=== PATIENT | female | born 1975 | race African-American/Black ===

== ENCOUNTER 2017-04-11 14:25 | Inpatient (IN) | payer OTHER ==
[2017-04-11 16:04] VITALS: BMI 28.7
--- NOTE | 2017-04-11 18:04 | HP ---
CIWA Score - CIWA Score Nausea/Vomitin-Mild Nausea/No Vomiting Muscle Tremors: 3 Anxiety: 3 Agitation: 4-Moderately Restless Paroxysmal Sweats: 1-Minimal Palms Moist Orientation: 1-Uncertain about Date Tacttile Disturbances: 0-None Auditory Disturbances: 0-None Visual Disturbances: 0-None Headache: 1-Very Mild CIWA-Ar Total Score: 14 Admission ROS BHS - HPI Chief Complaint: withdrawal sx Allergies/Adverse Reactions: Allergies Allergy/AdvReac Type Severity Reaction Status Date / Time fish derived Allergy Severe Hives Verified 04/11/17 18:06 Penicillins Allergy Severe Difficulty Verified 04/11/17 18:06 Breathing seafood Allergy Severe Hives Uncoded 04/11/17 18:06 History of Present Illness: 42 years old female with long history of alcohol marijuana cocaine nicotine dependence has hypertension, hiv asthma copd and schizophrenia is admitted to detox Exam Limitations: No Limitations - Ebola screening Have you traveled outside of the country in the last 21 days: No Have you had contact with anyone from an Ebola affected area: No Have you been sick,other than usual withdrawal symptoms: No Do you have a fever: No - Review of Systems Constitutional: Changes in sleep, Weight Stable EENT: reports: Dental Problems (multiple teeth missing) Respiratory: reports: SOB with Exertion Cardiac: reports: No Symptoms Reported GI: reports: Nausea, Poor Fluid Intake, Indigestion, Abdominal cramping : reports: No Symptoms Reported Musculoskeletal: reports: Back Pain Integumentary: reports: No Symptoms Reported Neuro: reports: Tremors Endocrine: reports: No Symptoms Reported Hematology: reports: No Symptoms Reported Psychiatric: reports: Judgement Intact, Depressed Other Systems: Reviewed and Negative Patient History - Patient Medical History Hx Anemia: No Hx Asthma: Yes Hx Chronic Obstructive Pulmonary Disease (COPD): Yes Hx Cancer: No Hx Cardiac Disorders: No Hx Congestive Heart Failure: No Hx Hypertension: Yes Hx Hypercholesterolemia: No Hx Pacemaker: No HX Cerebrovascular Accident: No Hx Seizures: No Hx Dementia: No Hx Diabetes: No Hx Gastrointestinal Disorders: Yes Hx Liver Disease: No Hx Genitourinary Disorders: No Hx Sexually Transmitted Disorders: Yes (HIV since 1999) Hx Renal Disease (ESRD): No Hx Thyroid Disease: No Hx Human Immunodeficiency Virus (HIV): Yes (since 1999) Hx Hepatitis C: No Hx Depression: No Hx Suicide Attempt: No Hx Bipolar Disorder: No Hx Schizophrenia: Yes - Patient Surgical History Past Surgical History: Yes Hx Neurologic Surgery: No Hx Cataract Extraction: No Hx Cardiac Surgery: No Hx Lung Surgery: No Hx Breast Surgery: No Hx Breast Biopsy: No Hx Abdominal Surgery: No Hx Appendectomy: No Hx Cholecystectomy: No Hx Genitourinary Surgery: No Hx Section: Yes (1) Hx Orthopedic Surgery: No Hx Hysterectomy: No Anesthesia Reaction: No - PPD History Previous Implant?: Yes Documented Results: Negative w/o proof Implanted On Prior [facility] Admission?: Yes Date: 03/24/15 Results: 0 mm PPD to be Administered?: Yes - Reproductive History Patient is a Female of Child Bearing Age (11 -55 yrs old): Yes Last Menstrual Period: 03/10/17 Patient : No - Smoking Cessation Smoking history: Current every day smoker Have you smoked in the past 12 months: Yes Aproximately how many cigarettes per day: 40 Cigars Per Day: 0 Hx Chewing Tobacco Use: No Initiated information on smoking cessation: Yes 'Breaking Loose' booklet given: 04/11/17 - Substance & Tx. History Hx Alcohol Use: Yes Hx Substance Use: Yes Substance Use Type: Alcohol, Cocaine, Marijuana Hx Substance Use Treatment: Yes (2014) - Substances Abused Alcohol Route: Oral Frequency: Daily Amount used: volka Litter + 24 oz x 6 pack beer Age of first use: 15 Date of Last Use: 04/11/17 Marijuana/Hashish Route: Smoking Frequency: Daily Amount used: 1/4 g Age of first use: 15 Date of Last Use: 04/11/17 Cocaine Route: Smoking Frequency: Daily Amount used: 400$ Age of first use: 18 Date of Last Use: 04/11/17 Family Disease History - Family Disease History Family History: Unremarkable Admission Physical Exam BHS - Vital Signs Vital Signs: Vital Signs - 24 hr 04/11/17 16:00 Temperature 96.4 F L Pulse Rate 88 Respiratory 20 Rate Blood Pressure 122/69 - Physical General Appearance: Yes: Nourished, Appropriately Dressed, Mild Distress, Tremorous, Irritable, Sweating, Anxious HEENTM: Yes: Hearing grossly Normal, Normal ENT Inspection, Normocephalic, Normal Voice Respiratory: Yes: Chest Non-Tender, No Respiratory Distress, No Accessory Muscle Use, Wheezing, Hyperresonant Neck: Yes: Supple, Trachea in good position Breast: Yes: Breasts Symetrical Cardiology: Yes: Regular Rhythm, Regular Rate, S1, S2 Abdominal: Yes: Non Tender, Soft Genitourinary: Yes: Within Normal Limits Back: Yes: Normal Inspection Musculoskeletal: Yes: full range of Motion, Gait Steady, Back pain, Muscle Pain Extremities: Yes: Normal Range of Motion, Non-Tender, Tremors Neurological: Yes: Alert, Motor Strength 5/5, Normal Response, Depressed Affect Integumentary: Yes: Warm Lymphatic: Yes: Within Normal Limits - Diagnostic (1) Asthma Current Visit: Yes Status: Chronic (2) COPD with asthma Current Visit: Yes Status: Chronic (3) Essential hypertension Current Visit: Yes Status: Chronic (4) HIV (human immunodeficiency virus infection) Current Visit: Yes Status: Chronic (5) Alcohol dependence with uncomplicated withdrawal Current Visit: Yes Status: Acute (6) GERD (gastroesophageal reflux disease) Current Visit: Yes Status: Chronic Qualifiers: Esophagitis presence: without esophagitis Qualified Code(s): K21.9 - Gastro-esophageal reflux disease without esophagitis (7) Schizophrenia Current Visit: Yes Status: Suspected Qualifiers: Schizophrenia type: paranoid schizophrenia Qualified Code(s): F20.0 - Paranoid schizophrenia Cleared for Admission [facility] - Detox or Rehab [facility] Level of Care: Medically Managed Detox Regimen/Protocol: Librium [facility] Breath Alcohol Content Breath Alcohol Content: 0 Urine Pregancy Test - Result Urine Test Results: Negative- NO Line Present Urine Drug Screen - Results Drug Screen Negative: No Urine Drug Screen Results: THC-Marijuana, ELSI-Cocaine
[2017-04-11] MEDS ORDERED: MAGNESIUM CITRATE 300 ML BOTTLE PO PRN (18:07)
[2017-04-11] MEDS ORDERED: chlordiazePOXIDE HCL 25 MG CAPSULE PO PRN (18:07)
[2017-04-11] MEDS ORDERED: MENTHOL/PHENOL 1 EACH UD MM PRN (18:07)
[2017-04-11] MEDS ORDERED: P-EPHED 60MG/TRIPROLIDI 2.5MG TABLET PO PRN (18:07)
[2017-04-11] MEDS ORDERED: hydrOXYzine PAMOATE 50 MG CAPSULE (FP) PO PRN (18:07)
[2017-04-11] MEDS ORDERED: LOPERAMIDE HCL 2 MG CAPSULE PO PRN (18:07)
[2017-04-11] MEDS ORDERED: NICOTINE POLACRILEX 4 MG GUM BC PRN (18:07)
[2017-04-11] MEDS ORDERED: MAGNESIUM HYDROX 2400MG/30ML ORAL SUSPENSION 30 ML CUP PO PRN (18:07)
[2017-04-11] MEDS ORDERED: MAG HYDROX/AL HYDROX/SIMETH 30 ML UNIT-DOSE CUP PO PRN (18:07)
[2017-04-11] MEDS ORDERED: guaiFENesin/D-METHORPHAN HB 10 ML UNIT-DOSE CUPS PO PRN (18:07)
[2017-04-11] MEDS ORDERED: ALBUTEROL SO4 2.5/IPRATROPIUM 0.5 INH SOL 3 ML VIAL.NEB. NEB PRN (18:10)
[2017-04-11] MEDS ORDERED: ALBUTEROL SO4 6.7 GM HFA INHALER IH PRN (18:10)
[2017-04-11] MEDS ORDERED: chlordiazePOXIDE HCL 25 MG CAPSULE PO ONE (18:45)
[2017-04-11] MEDS: BUDESONIDE/FORMETEROL FUMARATE 80/4.5 mcg INHALER IH SCH (22:28)
[2017-04-11] MEDS: THIAMINE HCL 100 MG TABLET (FP) PO SCH (22:29)
[2017-04-11] MEDS: chlordiazePOXIDE HCL 25 MG CAPSULE PO SCH (22:29)
[2017-04-11] MEDS: RANITIDINE HCL 150 MG TABLET (FP) PO SCH (22:29)
[2017-04-11] MEDS: diphenhydrAMINE HCL 50 MG CAPSULE PO PRN (22:30)
[2017-04-12 00:14] LABS: URINE APPEARANCE SLCLOUDY; URINE BILIRUBIN NEGATIVE (NEGATIVE); URINE BLOOD NEGATIVE (NEGATIVE); URINE COLOR YELLOW; URINE GLUCOSE (UA) NEGATIVE (NEGATIVE); URINE KETONE NEGATIVE (NEGATIVE); URINE LEUK ESTERASE NEGATIVE (NEGATIVE); URINE NITRITE NEGATIVE (NEGATIVE); URINE PROTEIN NEGATIVE (NEGATIVE); URINE UROBILINOGEN NEGATIVE mg/dL (0.2-1.0)
[2017-04-12] MEDS: chlordiazePOXIDE HCL 25 MG CAPSULE PO SCH ×4 (08:31→22:21)
--- NOTE | 2017-04-12 09:57 | CONSULT ---
[facility] Psychiatric Consult - Data Date of interview: 04/12/17 Admission source: [facility] Identifying data: Patient is approached for psychiatric interview.She refused.Nursing staff is made aware.
[2017-04-12] MEDS: SULFAMETHOXAZOLE/TRIMETHOPRIM 800MG/160MG D.S. TABLET PO SCH (10:25)
[2017-04-12] MEDS: BUDESONIDE/FORMETEROL FUMARATE 80/4.5 mcg INHALER IH SCH ×2 (10:25→22:21)
[2017-04-12] MEDS: amLODIPine BESYLATE 2.5 MG TABLET (FP) PO SCH (10:25)
[2017-04-12] MEDS: NICOTINE 21 MG/24 HOURS TOPICAL PATCH TD SCH (10:26)
[2017-04-12] MEDS: PRENATAL VITAMINS W/ FOLIC ACID TABLET (FP) PO SCH (10:26)
[2017-04-12] MEDS: RANITIDINE HCL 150 MG TABLET (FP) PO SCH ×2 (10:26→22:21)
--- NOTE | 2017-04-12 10:30 | EKG ---
Test Reason : Blood Pressure : / mmHG Vent. Rate : 074 BPM Atrial Rate : 074 BPM P-R Int : 168 ms QRS Dur : 092 ms QT Int : 376 ms P-R-T Axes : 068 051 036 degrees QTc Int : 417 ms NORMAL SINUS RHYTHM NORMAL ECG NO PREVIOUS ECGS AVAILABLE Confirmed by SALIMA LAM MD ([id number]) on 04/12/2017 10:30:07 AM Referred By: Jann Baker Confirmed By:SALIMA LAM MD
--- NOTE | 2017-04-12 12:01 | PN ---
S CIWA - CIWA Score Nausea/Vomitin-No Nausea/No Vomiting Muscle Tremors: 4-Moderate,w/Arms Extend Anxiety: 4-Mod. Anxious/Guarded Agitation: 4-Moderately Restless Paroxysmal Sweats: 3 Orientation: 0-Oriented Tacttile Disturbances: 0-None Auditory Disturbances: 0-None Visual Disturbances: 0-None Headache: 0-None Present CIWA-Ar Total Score: 15 BHS Progress Note (SOAP) Subjective: body aches sweats chills agitation anxiety interrupted sleep Objective: 04/12/17 12:00 Vital Signs Temperature 98.2 F 04/12/17 10:00 Pulse Rate 70 04/12/17 10:00 Respiratory Rate 18 04/12/17 10:00 Blood Pressure 136/91 04/12/17 10:00 O2 Sat by Pulse Oximetry (%) Laboratory Tests 04/11/17 23:56 Urine Color Yellow Urine Appearance Slcloudy Urine pH 6.0 Urine Protein Negative Urine Glucose (UA) Negative Urine Ketones Negative Urine Blood Negative Urine Nitrite Negative Urine Bilirubin Negative Urine Urobilinogen Negative Ur Leukocyte Esterase Negative rest of labs pending awake/alert lying in bed no acute distress Assessment: 04/12/17 12:01 withdrawal sx Plan: continue detox increase fluids labs pending
[2017-04-12] MEDS: THIAMINE HCL 100 MG TABLET (FP) PO SCH (22:21)
[2017-04-12] MEDS: diphenhydrAMINE HCL 50 MG CAPSULE PO PRN (22:21)
[2017-04-13] MEDS: chlordiazePOXIDE HCL 25 MG CAPSULE PO SCH ×3 (06:18→17:49)
[2017-04-13] MEDS: ACETAMINOPHEN 325 MG TABLET (FP) PO PRN (06:21)
[2017-04-13] MEDS: amLODIPine BESYLATE 2.5 MG TABLET (FP) PO SCH (10:46)
[2017-04-13] MEDS: BUDESONIDE/FORMETEROL FUMARATE 80/4.5 mcg INHALER IH SCH ×2 (10:46→23:24)
[2017-04-13] MEDS: NICOTINE 21 MG/24 HOURS TOPICAL PATCH TD SCH (10:46)
[2017-04-13] MEDS: SULFAMETHOXAZOLE/TRIMETHOPRIM 800MG/160MG D.S. TABLET PO SCH (10:46)
[2017-04-13] MEDS: RANITIDINE HCL 150 MG TABLET (FP) PO SCH ×2 (10:46→23:24)
[2017-04-13] MEDS: PRENATAL VITAMINS W/ FOLIC ACID TABLET (FP) PO SCH (10:46)
[2017-04-13 11:07] LABS: MCH 24.3 pg (25.7-33.7); MCHC 31.9 g/dl (32.0-36.0); MEAN CELL VOLUME 76.2 fl (80-96); MEAN PLT VOLUME 9.1 fl (7.5-11.1); PLATELET COUNT 173 K/MM3 (134-434); RDW 17.7 % (11.6-15.6); WHITE BLOOD COUNT 2.5 K/mm3 (4.0-10.0)
[2017-04-13 11:17] LABS: ALBUMIN 2.8 g/dl (3.4-5.0); ANION GAP 7 (8-16); CALCIUM 8.9 mg/dL (8.5-10.1); CO2 25 mmol/L (21-32); GLUCOSE,RANDOM 85 mg/dL (74-106)
[2017-04-13 11:21] LABS: ALK PHOS 52 U/L (45-117); BILIRUBIN,TOTAL 0.3 mg/dL (0.2-1.0); CREATININE 0.5 mg/dL (0.55-1.02); SGOT/AST 33 U/L (15-37); SGPT/ALT 34 U/L (12-78); TOT PROT 6.6 g/dl (6.4-8.2)
--- NOTE | 2017-04-13 14:48 | PN ---
[facility] CIWA - CIWA Score Nausea/Vomitin Muscle Tremors: 3 Anxiety: 3 Agitation: 2 Paroxysmal Sweats: 1-Minimal Palms Moist Orientation: 0-Oriented Tacttile Disturbances: 1-Very Mild Itch/Numbness Auditory Disturbances: 1-Very Mild Visual Disturbances: 1-Very Mild Sensitivity Headache: 2-Mild CIWA-Ar Total Score: 17 S Progress Note (SOAP) Subjective: alert,irritable,anxious,interrupted sleep,tremor Objective: 04/13/17 14:48 Vital Signs Temperature 98.1 F 04/13/17 10:02 Pulse Rate 70 04/13/17 10:02 Respiratory Rate 18 04/13/17 10:02 Blood Pressure 140/89 04/13/17 10:02 O2 Sat by Pulse Oximetry (%) ekg nsr,normal ecg 04/13/17 14:50 Laboratory Last Values WBC 2.5 K/mm3 (4.0-10.0) L D 04/13/17 08:33 RBC 4.69 M/mm3 (3.60-5.2) 04/13/17 08:33 Hgb 11.4 GM/dL (10.7-15.3) 04/13/17 08:33 Hct 35.8 % (32.4-45.2) 04/13/17 08:33 MCV 76.2 fl (80-96) L 04/13/17 08:33 MCH 24.3 pg (25.7-33.7) L 04/13/17 08:33 MCHC 31.9 g/dl (32.0-36.0) L 04/13/17 08:33 RDW 17.7 % (11.6-15.6) H 04/13/17 08:33 Plt Count 173 K/MM3 (134-434) 04/13/17 08:33 MPV 9.1 fl (7.5-11.1) 04/13/17 08:33 Sodium 130 mmol/L (136-145) L 04/13/17 08:33 Potassium 4.1 mmol/L (3.5-5.1) 04/13/17 08:33 Chloride 98 mmol/L (98-107) 04/13/17 08:33 Carbon Dioxide 25 mmol/L (21-32) 04/13/17 08:33 Anion Gap 7 (8-16) L 04/13/17 08:33 BUN 7 mg/dL (7-18) D 04/13/17 08:33 Creatinine 0.5 mg/dL (0.55-1.02) L D 04/13/17 08:33 Creat Clearance w eGFR > 60 (>60) 04/13/17 08:33 Random Glucose 85 mg/dL (74-106) D 04/13/17 08:33 Calcium 8.9 mg/dL (8.5-10.1) 04/13/17 08:33 Total Bilirubin 0.3 mg/dL (0.2-1.0) D 04/13/17 08:33 AST 33 U/L (15-37) D 04/13/17 08:33 ALT 34 U/L (12-78) 04/13/17 08:33 Alkaline Phosphatase 52 U/L (45-117) D 04/13/17 08:33 Total Protein 6.6 g/dl (6.4-8.2) 04/13/17 08:33 Albumin 2.8 g/dl (3.4-5.0) L D 04/13/17 08:33 Urine Color Yellow 04/11/17 23:56 Urine Appearance Slcloudy 04/11/17 23:56 Urine pH 6.0 (5.0-8.0) 04/11/17 23:56 Ur Specific [place] 1.020 (1.005-1.025) 04/11/17 23:56 Urine Protein Negative (NEGATIVE) 04/11/17 23:56 Urine Glucose (UA) Negative (NEGATIVE) 04/11/17 23:56 Urine Ketones Negative (NEGATIVE) 04/11/17 23:56 Urine Blood Negative (NEGATIVE) 04/11/17 23:56 Urine Nitrite Negative (NEGATIVE) 04/11/17 23:56 Urine Bilirubin Negative (NEGATIVE) 04/11/17 23:56 Urine Urobilinogen Negative mg/dL (0.2-1.0) 04/11/17 23:56 Ur Leukocyte Esterase Negative (NEGATIVE) 04/11/17 23:56 Valproic Acid < 3.000 ug/ml (50-100) L 04/13/17 08:33 RPR Titer Nonreactive (NONREACTIVE) 04/13/17 08:33 Assessment: 04/13/17 14:50 withdrawal symptom Plan: continue detox,repeat cbc,cmp in am
[2017-04-13] MEDS: chlordiazePOXIDE 5 MG CAPSULE PO SCH (23:23)
[2017-04-13] MEDS: THIAMINE HCL 100 MG TABLET (FP) PO SCH (23:24)
[2017-04-14] MEDS: chlordiazePOXIDE 5 MG CAPSULE PO SCH ×3 (06:46→17:01)
[2017-04-14 10:29] LABS: MCH 24.3 pg (25.7-33.7); MCHC 32.2 g/dl (32.0-36.0); MEAN CELL VOLUME 75.5 fl (80-96); MEAN PLT VOLUME 8.9 fl (7.5-11.1); PLATELET COUNT 184 K/MM3 (134-434); RDW 17.8 % (11.6-15.6); WHITE BLOOD COUNT 2.3 K/mm3 (4.0-10.0)
[2017-04-14] MEDS: RANITIDINE HCL 150 MG TABLET (FP) PO SCH ×2 (10:30→22:59)
[2017-04-14] MEDS: amLODIPine BESYLATE 2.5 MG TABLET (FP) PO SCH (10:30)
[2017-04-14] MEDS: NICOTINE 21 MG/24 HOURS TOPICAL PATCH TD SCH (10:30)
[2017-04-14] MEDS: SULFAMETHOXAZOLE/TRIMETHOPRIM 800MG/160MG D.S. TABLET PO SCH (10:30)
[2017-04-14] MEDS: PRENATAL VITAMINS W/ FOLIC ACID TABLET (FP) PO SCH (10:30)
[2017-04-14] MEDS: BUDESONIDE/FORMETEROL FUMARATE 80/4.5 mcg INHALER IH SCH ×2 (10:31→22:58)
[2017-04-14 11:08] LABS: ALBUMIN 2.9 g/dl (3.4-5.0); ALK PHOS 58 U/L (45-117); ANION GAP 6 (8-16); BILIRUBIN,TOTAL 0.3 mg/dL (0.2-1.0); CALCIUM 9.2 mg/dL (8.5-10.1); CO2 25 mmol/L (21-32); CREATININE 0.5 mg/dL (0.55-1.02); GLUCOSE,RANDOM 87 mg/dL (74-106); SGOT/AST 32 U/L (15-37); SGPT/ALT 40 U/L (12-78); TOT PROT 6.6 g/dl (6.4-8.2)
--- NOTE | 2017-04-14 15:19 | PN ---
S Progress Note (SOAP) Subjective: ALERT,IRRITABLE,INTERRUPTED SLEEP Objective: 04/14/17 15:17 Vital Signs Temperature 97.7 F 04/14/17 14:12 Pulse Rate 80 04/14/17 14:12 Respiratory Rate 18 04/14/17 14:12 Blood Pressure 113/68 04/14/17 14:12 O2 Sat by Pulse Oximetry (%) Laboratory Last Values WBC 2.3 K/mm3 (4.0-10.0) L 04/14/17 07:45 RBC 4.64 M/mm3 (3.60-5.2) 04/14/17 07:45 Hgb 11.3 GM/dL (10.7-15.3) 04/14/17 07:45 Hct 35.0 % (32.4-45.2) 04/14/17 07:45 MCV 75.5 fl (80-96) L 04/14/17 07:45 MCH 24.3 pg (25.7-33.7) L 04/14/17 07:45 MCHC 32.2 g/dl (32.0-36.0) 04/14/17 07:45 RDW 17.8 % (11.6-15.6) H 04/14/17 07:45 Plt Count 184 K/MM3 (134-434) 04/14/17 07:45 MPV 8.9 fl (7.5-11.1) 04/14/17 07:45 Sodium 131 mmol/L (136-145) L 04/14/17 07:45 Potassium 4.2 mmol/L (3.5-5.1) 04/14/17 07:45 Chloride 100 mmol/L (98-107) 04/14/17 07:45 Carbon Dioxide 25 mmol/L (21-32) 04/14/17 07:45 Anion Gap 6 (8-16) L 04/14/17 07:45 BUN 8 mg/dL (7-18) 04/14/17 07:45 Creatinine 0.5 mg/dL (0.55-1.02) L 04/14/17 07:45 Creat Clearance w eGFR > 60 (>60) 04/14/17 07:45 Random Glucose 87 mg/dL (74-106) 04/14/17 07:45 Calcium 9.2 mg/dL (8.5-10.1) 04/14/17 07:45 Total Bilirubin 0.3 mg/dL (0.2-1.0) 04/14/17 07:45 AST 32 U/L (15-37) 04/14/17 07:45 ALT 40 U/L (12-78) 04/14/17 07:45 Alkaline Phosphatase 58 U/L (45-117) 04/14/17 07:45 Total Protein 6.6 g/dl (6.4-8.2) 04/14/17 07:45 Albumin 2.9 g/dl (3.4-5.0) L 04/14/17 07:45 Urine Color Yellow 04/11/17 23:56 Urine Appearance Slcloudy 04/11/17 23:56 Urine pH 6.0 (5.0-8.0) 04/11/17 23:56 Ur Specific [place] 1.020 (1.005-1.025) 04/11/17 23:56 Urine Protein Negative (NEGATIVE) 04/11/17 23:56 Urine Glucose (UA) Negative (NEGATIVE) 04/11/17 23:56 Urine Ketones Negative (NEGATIVE) 04/11/17 23:56 Urine Blood Negative (NEGATIVE) 04/11/17 23:56 Urine Nitrite Negative (NEGATIVE) 04/11/17 23:56 Urine Bilirubin Negative (NEGATIVE) 04/11/17 23:56 Urine Urobilinogen Negative mg/dL (0.2-1.0) 04/11/17 23:56 Ur Leukocyte Esterase Negative (NEGATIVE) 04/11/17 23:56 Valproic Acid < 3.000 ug/ml (50-100) L 04/13/17 08:33 RPR Titer Nonreactive (NONREACTIVE) 04/13/17 08:33 Assessment: 04/14/17 15:18 WITHDRAWAL SYMPTOM Plan: CONTINUE DETOX,DISCHARGE IN AM
[2017-04-14] MEDS: ACETAMINOPHEN 325 MG TABLET (FP) PO PRN (15:28)
[2017-04-14] MEDS: chlordiazePOXIDE HCL 10 MG CAPSULE PO SCH (22:58)
[2017-04-14] MEDS: THIAMINE HCL 100 MG TABLET (FP) PO SCH (22:59)
[2017-04-15] MEDS: chlordiazePOXIDE HCL 10 MG CAPSULE PO SCH ×2 (07:53→10:01)
[2017-04-15] MEDS: BUDESONIDE/FORMETEROL FUMARATE 80/4.5 mcg INHALER IH SCH (09:48)
[2017-04-15] MEDS: RANITIDINE HCL 150 MG TABLET (FP) PO SCH (09:48)
[2017-04-15] MEDS: PRENATAL VITAMINS W/ FOLIC ACID TABLET (FP) PO SCH (09:48)
[2017-04-15] MEDS: SULFAMETHOXAZOLE/TRIMETHOPRIM 800MG/160MG D.S. TABLET PO SCH (09:48)
[2017-04-15] MEDS: amLODIPine BESYLATE 2.5 MG TABLET (FP) PO SCH (09:48)
--- NOTE | 2017-04-15 09:49 | DS ---
[facility] Detox Discharge Summary Admission Date: 04/11/17 Discharge Date: 04/15/17 - History Present History: Alcohol Dependence, Cannabis Dependence, Cocaine Dependence, Opioid Dependence - Physical Exam Results Vital Signs: Vital Signs Temperature 96.3 F L 04/15/17 06:57 Pulse Rate 74 04/15/17 06:57 Respiratory Rate 18 04/15/17 06:57 Blood Pressure 101/51 04/15/17 06:57 O2 Sat by Pulse Oximetry (%) - Treatment Hospital Course: Detox Protocol Followed, Detoxed Safely, Responded well, Discharged Condition Good, Rehab Referral Accepted - Medication Discharge Medications: Ambulatory Orders Abacavir Sulfate/Lamivudine [Epzicom -] 1 tab PO DAILY 10/28/13 Albuterol Sulfate Inhaler - [Ventolin HFA Inhaler -] 2 inh PO Q4H PRN 10/28/13 Atazanavir [Reyataz -] 300 mg PO DAILY 10/28/13 Ritonavir [Norvir] 100 mg PO DAILY 10/28/13 Tenofovir Disoproxil Fumarate [Viread] 300 mg PO DAILY 10/28/13 Amlodipine Besylate [Norvasc -] 2.5 mg PO DAILY #0 tablet 11/10/13 Quetiapine Fumarate [Seroquel -] 100 mg PO BID #60 tablet 11/10/13 Prednisone [Deltasone -] 40 mg PO DAILY 03/22/15 Quetiapine Fumarate [Seroquel] 100 mg PO BID #60 tablet 03/25/15 - Diagnosis (1) Alcohol dependence with uncomplicated withdrawal Current Visit: Yes Status: Chronic (2) Asthma Current Visit: Yes Status: Chronic (3) COPD with asthma Current Visit: Yes Status: Chronic (4) Essential hypertension Current Visit: Yes Status: Chronic (5) GERD (gastroesophageal reflux disease) Current Visit: Yes Status: Chronic Qualifiers: Esophagitis presence: without esophagitis Qualified Code(s): K21.9 - Gastro-esophageal reflux disease without esophagitis (6) HIV (human immunodeficiency virus infection) Current Visit: Yes Status: Chronic (7) Schizophrenia Current Visit: Yes Status: Suspected Qualifiers: Schizophrenia type: paranoid schizophrenia Qualified Code(s): F20.0 - Paranoid schizophrenia (8) Bipolar disorder Current Visit: No Status: Active (9) depression Current Visit: No Status: Active (10) Difficulty swallowing Current Visit: No Status: Acute (11) Throat discomfort Current Visit: No Status: Acute (12) Alcohol dependence Current Visit: Yes Status: Chronic (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
[2017-04-15 10:49] VITALS: BP 122/71; PULSE 89; TEMP 98.8
== END 2017-04-15 11:55 | disposition other institution (70) | DRG 774 ==
LOC: YASAS 14:25 → Y6N 18:11
PROVIDERS: ADMIT Internal Medicine; ATTEND Internal Medicine Addiction Medicine
PROC: HZ2ZZZZ Detoxification Services for Substance Abuse Treatment (ICD-10-PCS; principal; 2017-04-11)
DX: F10.230 Alcohol dependence with withdrawal, uncomplicated (principal); F14.20 Cocaine dependence, uncomplicated; F12.20 Cannabis dependence, uncomplicated; F17.210 Nicotine dependence, cigarettes, uncomplicated; F20.0 Paranoid schizophrenia; F31.9 Bipolar disorder, unspecified; J44.9 Chronic obstructive pulmonary disease, unspecified; I10 Essential (primary) hypertension; K21.9 Gastro-esophageal reflux disease without esophagitis; R13.10 Dysphagia, unspecified; R07.0 Pain in throat; R41.83 Borderline intellectual functioning; Z88.0 Allergy status to penicillin; Z91.013 Allergy to seafood
CPT/HCPCS: 36415; 80053; 80164; 81003; 85027; 86593; 93005; 93010

== ENCOUNTER 2017-04-15 12:01 | Inpatient (IN) | payer OTHER ==
[2017-04-15] MEDS ORDERED: guaiFENesin/D-METHORPHAN HB 10 ML UNIT-DOSE CUPS PO PRN (13:59)
[2017-04-15] MEDS ORDERED: P-EPHED 60MG/TRIPROLIDI 2.5MG TABLET PO PRN (13:59)
[2017-04-15] MEDS ORDERED: IBUPROFEN 400 MG TABLET (FP) PO PRN (13:59)
[2017-04-15] MEDS ORDERED: MAGNESIUM CITRATE 300 ML BOTTLE PO PRN (13:59)
[2017-04-15] MEDS ORDERED: diphenhydrAMINE HCL 50 MG CAPSULE PO PRN (13:59)
[2017-04-15] MEDS ORDERED: ACETAMINOPHEN 325 MG TABLET (FP) PO PRN (13:59)
[2017-04-15] MEDS ORDERED: MAGNESIUM HYDROX 2400MG/30ML ORAL SUSPENSION 30 ML CUP PO PRN (13:59)
[2017-04-15] MEDS ORDERED: MENTHOL/PHENOL 1 EACH UD MM PRN (13:59)
[2017-04-15] MEDS ORDERED: LOPERAMIDE HCL 2 MG CAPSULE PO PRN (13:59)
[2017-04-15] MEDS ORDERED: MAG HYDROX/AL HYDROX/SIMETH 30 ML UNIT-DOSE CUP PO PRN (13:59)
[2017-04-15] MEDS ORDERED: ALBUTEROL SO4 6.7 GM HFA INHALER IH PRN (14:00)
--- NOTE | 2017-04-15 14:54 | HP ---
[facility] Rehab Assess/Revision - Admission History Admitted to Rehab from: [facility] Date of Admission to Rehab: 04/15/17 - Vital signs Vital Signs: Vital Signs Period Temp Pulse Resp BP Sys/Chew Pulse Ox Last 24 Hr 80 18 106/70 - Findings Detox History & Physical reviewed: Yes Concur with findings: Yes Comments/Additional Findings: ADMITTED TO [facility] TO CONTINUE TX.
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
[2017-04-15] MEDS: THIAMINE HCL 100 MG TABLET (FP) PO SCH (21:15)
[2017-04-15] MEDS: BUDESONIDE/FORMETEROL FUMARATE 80/4.5 mcg INHALER IH SCH (21:15)
[2017-04-16] MEDS ORDERED: PT OWN MED DRAWER 7, Y5N ONE (08:33)
[2017-04-16] MEDS: PRENATAL VITAMINS W/ FOLIC ACID TABLET (FP) PO SCH (09:53)
[2017-04-16] MEDS: SULFAMETHOXAZOLE/TRIMETHOPRIM 800MG/160MG D.S. TABLET PO SCH (09:54)
[2017-04-16] MEDS: amLODIPine BESYLATE 2.5 MG TABLET (FP) PO SCH (09:54)
[2017-04-16] MEDS: RANITIDINE HCL 150 MG TABLET (FP) PO SCH (09:54)
[2017-04-16] MEDS: BUDESONIDE/FORMETEROL FUMARATE 80/4.5 mcg INHALER IH SCH ×2 (09:54→21:44)
[2017-04-16] MEDS: THIAMINE HCL 100 MG TABLET (FP) PO SCH (21:44)
[2017-04-17] MEDS ORDERED: PT OWN MED DRAWER 7, Y5N ONE ×2 (08:32→20:12)
[2017-04-17] MEDS: PRENATAL VITAMINS W/ FOLIC ACID TABLET (FP) PO SCH (10:07)
[2017-04-17] MEDS: RANITIDINE HCL 150 MG TABLET (FP) PO SCH (10:07)
[2017-04-17] MEDS: amLODIPine BESYLATE 2.5 MG TABLET (FP) PO SCH (10:07)
[2017-04-17] MEDS: BUDESONIDE/FORMETEROL FUMARATE 80/4.5 mcg INHALER IH SCH ×2 (10:07→21:14)
[2017-04-17] MEDS: SULFAMETHOXAZOLE/TRIMETHOPRIM 800MG/160MG D.S. TABLET PO SCH (10:07)
[2017-04-17] MEDS: THIAMINE HCL 100 MG TABLET (FP) PO SCH (21:14)
[2017-04-18] MEDS ORDERED: PT OWN MED DRAWER 7, Y5N ONE (08:21)
[2017-04-18] MEDS: amLODIPine BESYLATE 2.5 MG TABLET (FP) PO SCH (10:23)
[2017-04-18] MEDS: BUDESONIDE/FORMETEROL FUMARATE 80/4.5 mcg INHALER IH SCH ×2 (10:23→21:13)
[2017-04-18] MEDS: SULFAMETHOXAZOLE/TRIMETHOPRIM 800MG/160MG D.S. TABLET PO SCH (10:23)
[2017-04-18] MEDS: PRENATAL VITAMINS W/ FOLIC ACID TABLET (FP) PO SCH (10:24)
[2017-04-18] MEDS: RANITIDINE HCL 150 MG TABLET (FP) PO SCH (10:24)
[2017-04-18] MEDS: DIVALPROEX SODIUM 500 MG TABLET E.C. PO SCH ×2 (11:23→21:13)
[2017-04-18] MEDS: THIAMINE HCL 100 MG TABLET (FP) PO SCH (21:13)
[2017-04-18] MEDS: QUEtiapine FUMARATE 100 MG TABLET (FP) PO SCH (21:13)
[2017-04-19] MEDS ORDERED: PT OWN MED DRAWER 7, Y5N ONE (08:27)
[2017-04-19] MEDS: amLODIPine BESYLATE 2.5 MG TABLET (FP) PO SCH (09:58)
[2017-04-19] MEDS: SULFAMETHOXAZOLE/TRIMETHOPRIM 800MG/160MG D.S. TABLET PO SCH (09:58)
[2017-04-19] MEDS: RANITIDINE HCL 150 MG TABLET (FP) PO SCH (09:58)
[2017-04-19] MEDS: DIVALPROEX SODIUM 500 MG TABLET E.C. PO SCH ×2 (09:58→21:21)
[2017-04-19] MEDS: BUDESONIDE/FORMETEROL FUMARATE 80/4.5 mcg INHALER IH SCH ×2 (09:59→21:22)
[2017-04-19] MEDS: PRENATAL VITAMINS W/ FOLIC ACID TABLET (FP) PO SCH (09:59)
[2017-04-19] MEDS: QUEtiapine FUMARATE 100 MG TABLET (FP) PO SCH (21:21)
[2017-04-19] MEDS: THIAMINE HCL 100 MG TABLET (FP) PO SCH (21:21)
[2017-04-20] MEDS: SULFAMETHOXAZOLE/TRIMETHOPRIM 800MG/160MG D.S. TABLET PO SCH (09:37)
[2017-04-20] MEDS: RANITIDINE HCL 150 MG TABLET (FP) PO SCH (09:37)
[2017-04-20] MEDS: PRENATAL VITAMINS W/ FOLIC ACID TABLET (FP) PO SCH (09:37)
[2017-04-20] MEDS: DIVALPROEX SODIUM 500 MG TABLET E.C. PO SCH ×2 (09:37→21:14)
[2017-04-20] MEDS: amLODIPine BESYLATE 2.5 MG TABLET (FP) PO SCH (09:38)
[2017-04-20] MEDS: BUDESONIDE/FORMETEROL FUMARATE 80/4.5 mcg INHALER IH SCH ×2 (09:38→21:14)
[2017-04-20] MEDS: QUEtiapine FUMARATE 100 MG TABLET (FP) PO SCH (21:14)
[2017-04-20] MEDS: THIAMINE HCL 100 MG TABLET (FP) PO SCH (21:14)
[2017-04-21] MEDS: SULFAMETHOXAZOLE/TRIMETHOPRIM 800MG/160MG D.S. TABLET PO SCH (10:01)
[2017-04-21] MEDS: RANITIDINE HCL 150 MG TABLET (FP) PO SCH (10:01)
[2017-04-21] MEDS: amLODIPine BESYLATE 2.5 MG TABLET (FP) PO SCH (10:01)
[2017-04-21] MEDS: DIVALPROEX SODIUM 500 MG TABLET E.C. PO SCH ×2 (10:01→21:08)
[2017-04-21] MEDS: PRENATAL VITAMINS W/ FOLIC ACID TABLET (FP) PO SCH (10:01)
[2017-04-21] MEDS: BUDESONIDE/FORMETEROL FUMARATE 80/4.5 mcg INHALER IH SCH ×2 (10:01→21:08)
[2017-04-21] MEDS: THIAMINE HCL 100 MG TABLET (FP) PO SCH (21:08)
[2017-04-21] MEDS: QUEtiapine FUMARATE 100 MG TABLET (FP) PO SCH (21:09)
[2017-04-22] MEDS: PRENATAL VITAMINS W/ FOLIC ACID TABLET (FP) PO SCH (09:32)
[2017-04-22] MEDS: amLODIPine BESYLATE 2.5 MG TABLET (FP) PO SCH (09:33)
[2017-04-22] MEDS: BUDESONIDE/FORMETEROL FUMARATE 80/4.5 mcg INHALER IH SCH ×2 (09:33→21:06)
[2017-04-22] MEDS: RANITIDINE HCL 150 MG TABLET (FP) PO SCH (09:33)
[2017-04-22] MEDS: DIVALPROEX SODIUM 500 MG TABLET E.C. PO SCH ×2 (09:33→21:05)
[2017-04-22] MEDS: SULFAMETHOXAZOLE/TRIMETHOPRIM 800MG/160MG D.S. TABLET PO SCH (09:38)
[2017-04-22] MEDS: THIAMINE HCL 100 MG TABLET (FP) PO SCH (21:05)
[2017-04-22] MEDS: QUEtiapine FUMARATE 100 MG TABLET (FP) PO SCH (21:05)
[2017-04-23] MEDS: amLODIPine BESYLATE 2.5 MG TABLET (FP) PO SCH (10:00)
[2017-04-23] MEDS: BUDESONIDE/FORMETEROL FUMARATE 80/4.5 mcg INHALER IH SCH ×2 (10:00→21:25)
[2017-04-23] MEDS: PRENATAL VITAMINS W/ FOLIC ACID TABLET (FP) PO SCH (10:00)
[2017-04-23] MEDS: SULFAMETHOXAZOLE/TRIMETHOPRIM 800MG/160MG D.S. TABLET PO SCH (10:00)
[2017-04-23] MEDS: DIVALPROEX SODIUM 500 MG TABLET E.C. PO SCH ×2 (10:00→21:25)
[2017-04-23] MEDS: RANITIDINE HCL 150 MG TABLET (FP) PO SCH (10:00)
[2017-04-23] MEDS: QUEtiapine FUMARATE 100 MG TABLET (FP) PO SCH (21:25)
[2017-04-23] MEDS: THIAMINE HCL 100 MG TABLET (FP) PO SCH (21:25)
[2017-04-23] MEDS ORDERED: PT OWN MED DRAWER 7, Y5N ONE (22:33)
[2017-04-24] MEDS ORDERED: PT OWN MED DRAWER 7, Y5N ONE (08:08)
[2017-04-24] MEDS: BUDESONIDE/FORMETEROL FUMARATE 80/4.5 mcg INHALER IH SCH ×2 (09:53→21:12)
[2017-04-24] MEDS: RANITIDINE HCL 150 MG TABLET (FP) PO SCH (09:54)
[2017-04-24] MEDS: DIVALPROEX SODIUM 500 MG TABLET E.C. PO SCH ×2 (09:55→21:12)
[2017-04-24] MEDS: amLODIPine BESYLATE 2.5 MG TABLET (FP) PO SCH (09:55)
[2017-04-24] MEDS: PRENATAL VITAMINS W/ FOLIC ACID TABLET (FP) PO SCH (09:55)
[2017-04-24] MEDS: SULFAMETHOXAZOLE/TRIMETHOPRIM 800MG/160MG D.S. TABLET PO SCH (09:55)
[2017-04-24] MEDS ORDERED: DICLOFENAC SODIUM 75 MG TABLET.DR PO SCH (10:00)
[2017-04-24] MEDS ORDERED: FLUCONAZOLE 150 MG PO ONE (11:00)
[2017-04-24] MEDS: QUEtiapine FUMARATE 100 MG TABLET (FP) PO SCH (21:12)
[2017-04-24] MEDS: THIAMINE HCL 100 MG TABLET (FP) PO SCH (21:12)
[2017-04-25] MEDS ORDERED: PT OWN MED DRAWER 7, Y5N ONE (08:11)
[2017-04-25] MEDS: BUDESONIDE/FORMETEROL FUMARATE 80/4.5 mcg INHALER IH SCH ×2 (09:37→21:14)
[2017-04-25] MEDS: DIVALPROEX SODIUM 500 MG TABLET E.C. PO SCH ×2 (09:37→21:13)
[2017-04-25] MEDS: SULFAMETHOXAZOLE/TRIMETHOPRIM 800MG/160MG D.S. TABLET PO SCH (09:37)
[2017-04-25] MEDS: RANITIDINE HCL 150 MG TABLET (FP) PO SCH (09:37)
[2017-04-25] MEDS: amLODIPine BESYLATE 2.5 MG TABLET (FP) PO SCH (09:40)
[2017-04-25] MEDS: PRENATAL VITAMINS W/ FOLIC ACID TABLET (FP) PO SCH (09:40)
[2017-04-25] MEDS: QUEtiapine FUMARATE 100 MG TABLET (FP) PO SCH (21:13)
[2017-04-25] MEDS: THIAMINE HCL 100 MG TABLET (FP) PO SCH (21:13)
[2017-04-26] MEDS ORDERED: PT OWN MED DRAWER 7, Y5N ONE ×2 (08:19→19:27)
[2017-04-26] MEDS: DIVALPROEX SODIUM 500 MG TABLET E.C. PO SCH ×2 (10:03→21:17)
[2017-04-26] MEDS: BUDESONIDE/FORMETEROL FUMARATE 80/4.5 mcg INHALER IH SCH ×2 (10:03→21:18)
[2017-04-26] MEDS: PRENATAL VITAMINS W/ FOLIC ACID TABLET (FP) PO SCH (10:03)
[2017-04-26] MEDS: RANITIDINE HCL 150 MG TABLET (FP) PO SCH (10:03)
[2017-04-26] MEDS: amLODIPine BESYLATE 2.5 MG TABLET (FP) PO SCH (10:03)
[2017-04-26] MEDS: SULFAMETHOXAZOLE/TRIMETHOPRIM 800MG/160MG D.S. TABLET PO SCH (10:03)
[2017-04-26] MEDS: THIAMINE HCL 100 MG TABLET (FP) PO SCH (21:17)
[2017-04-26] MEDS: QUEtiapine FUMARATE 100 MG TABLET (FP) PO SCH (21:17)
[2017-04-27] MEDS ORDERED: PT OWN MED DRAWER 7, Y5N ONE (08:45)
[2017-04-27] MEDS: RANITIDINE HCL 150 MG TABLET (FP) PO SCH (09:38)
[2017-04-27] MEDS: SULFAMETHOXAZOLE/TRIMETHOPRIM 800MG/160MG D.S. TABLET PO SCH (09:38)
[2017-04-27] MEDS: PRENATAL VITAMINS W/ FOLIC ACID TABLET (FP) PO SCH (09:38)
[2017-04-27] MEDS: DIVALPROEX SODIUM 500 MG TABLET E.C. PO SCH ×2 (09:38→21:12)
[2017-04-27] MEDS: BUDESONIDE/FORMETEROL FUMARATE 80/4.5 mcg INHALER IH SCH ×2 (09:39→21:13)
[2017-04-27] MEDS: amLODIPine BESYLATE 2.5 MG TABLET (FP) PO SCH (09:39)
[2017-04-27] MEDS: QUEtiapine FUMARATE 100 MG TABLET (FP) PO SCH (21:12)
[2017-04-27] MEDS: THIAMINE HCL 100 MG TABLET (FP) PO SCH (21:12)
[2017-04-28] MEDS: SULFAMETHOXAZOLE/TRIMETHOPRIM 800MG/160MG D.S. TABLET PO SCH (09:42)
[2017-04-28] MEDS: PRENATAL VITAMINS W/ FOLIC ACID TABLET (FP) PO SCH (09:42)
[2017-04-28] MEDS: RANITIDINE HCL 150 MG TABLET (FP) PO SCH (09:42)
[2017-04-28] MEDS: DIVALPROEX SODIUM 500 MG TABLET E.C. PO SCH ×2 (09:42→21:11)
[2017-04-28] MEDS: BUDESONIDE/FORMETEROL FUMARATE 80/4.5 mcg INHALER IH SCH ×2 (09:43→21:12)
[2017-04-28] MEDS: amLODIPine BESYLATE 2.5 MG TABLET (FP) PO SCH (09:43)
[2017-04-28] MEDS: THIAMINE HCL 100 MG TABLET (FP) PO SCH (21:11)
[2017-04-28] MEDS: QUEtiapine FUMARATE 100 MG TABLET (FP) PO SCH (21:11)
[2017-04-29] MEDS: DIVALPROEX SODIUM 500 MG TABLET E.C. PO SCH ×2 (09:43→21:07)
[2017-04-29] MEDS: SULFAMETHOXAZOLE/TRIMETHOPRIM 800MG/160MG D.S. TABLET PO SCH (09:43)
[2017-04-29] MEDS: RANITIDINE HCL 150 MG TABLET (FP) PO SCH (09:43)
[2017-04-29] MEDS: PRENATAL VITAMINS W/ FOLIC ACID TABLET (FP) PO SCH (09:43)
[2017-04-29] MEDS: BUDESONIDE/FORMETEROL FUMARATE 80/4.5 mcg INHALER IH SCH ×2 (09:44→21:07)
[2017-04-29] MEDS: amLODIPine BESYLATE 2.5 MG TABLET (FP) PO SCH (09:44)
[2017-04-29] MEDS ORDERED: PT OWN MED DRAWER 7, Y5N ONE (20:06)
[2017-04-29] MEDS: THIAMINE HCL 100 MG TABLET (FP) PO SCH (21:07)
[2017-04-29] MEDS: QUEtiapine FUMARATE 100 MG TABLET (FP) PO SCH (21:07)
[2017-04-30] MEDS: RANITIDINE HCL 150 MG TABLET (FP) PO SCH (10:43)
[2017-04-30] MEDS: SULFAMETHOXAZOLE/TRIMETHOPRIM 800MG/160MG D.S. TABLET PO SCH (10:43)
[2017-04-30] MEDS: PRENATAL VITAMINS W/ FOLIC ACID TABLET (FP) PO SCH (10:43)
[2017-04-30] MEDS: DIVALPROEX SODIUM 500 MG TABLET E.C. PO SCH ×2 (10:43→21:20)
[2017-04-30] MEDS: BUDESONIDE/FORMETEROL FUMARATE 80/4.5 mcg INHALER IH SCH ×2 (10:45→21:20)
[2017-04-30] MEDS: amLODIPine BESYLATE 2.5 MG TABLET (FP) PO SCH (10:45)
[2017-04-30] MEDS: QUEtiapine FUMARATE 100 MG TABLET (FP) PO SCH (21:20)
[2017-04-30] MEDS: THIAMINE HCL 100 MG TABLET (FP) PO SCH (21:20)
[2017-05-01] MEDS ORDERED: PT OWN MED DRAWER 7, Y5N ONE (08:19)
[2017-05-01] MEDS: DIVALPROEX SODIUM 500 MG TABLET E.C. PO SCH ×2 (09:58→21:12)
[2017-05-01] MEDS: PRENATAL VITAMINS W/ FOLIC ACID TABLET (FP) PO SCH (09:58)
[2017-05-01] MEDS: BUDESONIDE/FORMETEROL FUMARATE 80/4.5 mcg INHALER IH SCH ×2 (09:59→21:12)
[2017-05-01] MEDS: RANITIDINE HCL 150 MG TABLET (FP) PO SCH (09:59)
[2017-05-01] MEDS: SULFAMETHOXAZOLE/TRIMETHOPRIM 800MG/160MG D.S. TABLET PO SCH (09:59)
[2017-05-01] MEDS: QUEtiapine FUMARATE 100 MG TABLET (FP) PO SCH (21:12)
[2017-05-01] MEDS: THIAMINE HCL 100 MG TABLET (FP) PO SCH (21:12)
[2017-05-02] MEDS ORDERED: PT OWN MED DRAWER 7, Y5N ONE (08:28)
[2017-05-02] MEDS: SULFAMETHOXAZOLE/TRIMETHOPRIM 800MG/160MG D.S. TABLET PO SCH (09:40)
[2017-05-02] MEDS: DIVALPROEX SODIUM 500 MG TABLET E.C. PO SCH ×2 (09:41→21:06)
[2017-05-02] MEDS: BUDESONIDE/FORMETEROL FUMARATE 80/4.5 mcg INHALER IH SCH ×2 (09:41→21:06)
[2017-05-02] MEDS: PRENATAL VITAMINS W/ FOLIC ACID TABLET (FP) PO SCH (09:41)
[2017-05-02] MEDS: RANITIDINE HCL 150 MG TABLET (FP) PO SCH (09:41)
[2017-05-02] MEDS: THIAMINE HCL 100 MG TABLET (FP) PO SCH (21:06)
[2017-05-02] MEDS: QUEtiapine FUMARATE 100 MG TABLET (FP) PO SCH (21:06)
[2017-05-03] MEDS ORDERED: PT OWN MED DRAWER 7, Y5N ONE (08:37)
[2017-05-03] MEDS: PRENATAL VITAMINS W/ FOLIC ACID TABLET (FP) PO SCH (10:04)
[2017-05-03] MEDS: RANITIDINE HCL 150 MG TABLET (FP) PO SCH (10:04)
[2017-05-03] MEDS: BUDESONIDE/FORMETEROL FUMARATE 80/4.5 mcg INHALER IH SCH ×2 (10:04→21:17)
[2017-05-03] MEDS: SULFAMETHOXAZOLE/TRIMETHOPRIM 800MG/160MG D.S. TABLET PO SCH (10:04)
[2017-05-03] MEDS: DIVALPROEX SODIUM 500 MG TABLET E.C. PO SCH ×2 (10:04→21:17)
[2017-05-03] MEDS: QUEtiapine FUMARATE 100 MG TABLET (FP) PO SCH (21:17)
[2017-05-03] MEDS: THIAMINE HCL 100 MG TABLET (FP) PO SCH (21:17)
[2017-05-04] MEDS: BUDESONIDE/FORMETEROL FUMARATE 80/4.5 mcg INHALER IH SCH ×2 (09:20→21:15)
[2017-05-04] MEDS: SULFAMETHOXAZOLE/TRIMETHOPRIM 800MG/160MG D.S. TABLET PO SCH (09:20)
[2017-05-04] MEDS: PRENATAL VITAMINS W/ FOLIC ACID TABLET (FP) PO SCH (09:20)
[2017-05-04] MEDS: DIVALPROEX SODIUM 500 MG TABLET E.C. PO SCH ×2 (09:20→21:14)
[2017-05-04] MEDS: RANITIDINE HCL 150 MG TABLET (FP) PO SCH (09:20)
[2017-05-04] MEDS: THIAMINE HCL 100 MG TABLET (FP) PO SCH (21:14)
[2017-05-04] MEDS: QUEtiapine FUMARATE 100 MG TABLET (FP) PO SCH (21:14)
[2017-05-05] MEDS: SULFAMETHOXAZOLE/TRIMETHOPRIM 800MG/160MG D.S. TABLET PO SCH (09:01)
[2017-05-05] MEDS: RANITIDINE HCL 150 MG TABLET (FP) PO SCH (09:01)
[2017-05-05] MEDS: BUDESONIDE/FORMETEROL FUMARATE 80/4.5 mcg INHALER IH SCH ×2 (09:02→21:07)
[2017-05-05] MEDS: PRENATAL VITAMINS W/ FOLIC ACID TABLET (FP) PO SCH (09:02)
[2017-05-05] MEDS: DIVALPROEX SODIUM 500 MG TABLET E.C. PO SCH ×2 (09:02→21:07)
[2017-05-05] MEDS ORDERED: PT OWN MED DRAWER 7, Y5N ONE (19:05)
[2017-05-05] MEDS: THIAMINE HCL 100 MG TABLET (FP) PO SCH (21:07)
[2017-05-05] MEDS: QUEtiapine FUMARATE 100 MG TABLET (FP) PO SCH (21:07)
[2017-05-06] MEDS: RANITIDINE HCL 150 MG TABLET (FP) PO SCH (11:23)
[2017-05-06] MEDS: PRENATAL VITAMINS W/ FOLIC ACID TABLET (FP) PO SCH (11:23)
[2017-05-06] MEDS: SULFAMETHOXAZOLE/TRIMETHOPRIM 800MG/160MG D.S. TABLET PO SCH (11:23)
[2017-05-06] MEDS: BUDESONIDE/FORMETEROL FUMARATE 80/4.5 mcg INHALER IH SCH ×2 (11:23→21:16)
[2017-05-06] MEDS: DIVALPROEX SODIUM 500 MG TABLET E.C. PO SCH ×2 (11:23→21:16)
--- NOTE | 2017-05-06 17:09 | PN ---
Psychiatric Progress Note Vital Signs: Vital Signs Period Temp Pulse Resp BP Sys/Chew Pulse Ox Last 24 Hr 98.4 F 78 18-18 137/81 Date of Session: 05/06/17 Chief Complaint:: Discharge visit HPI: Alcohol,Opioid,Cannabis and Cocaine dependence comorbid with Schizophrenia. ROS: HIV+,BA,HTN. Current Medications: Active Medications Generic Name Dose Route Start Last Admin Trade Name Freq PRN Reason Stop Dose Admin Acetaminophen 650 mg 04/15/17 13:59 Tylenol - PO Q4H PRN FEVER OR PAIN Al Hydroxide/Mg Hydroxide 30 ml 04/15/17 13:59 05/04/17 12:02 Mylanta Oral Suspension - PO 30 ml Q6H PRN Administration DYSPEPSIA Albuterol Sulfate 2 puff 04/15/17 14:00 Ventolin Hfa Inhaler - IH Q4H PRN ASTHMA Budesonide/Formoterol Fumarate 1 puff 04/15/17 22:00 05/06/17 11:23 Symbicort 80/4.5mcg - IH Not Given BID MATILDE Diphenhydramine HCl 50 mg 04/15/17 13:59 04/15/17 21:16 Benadryl - PO 50 mg HSMR1 PRN Administration FOR ITCHING Divalproex Sodium 500 mg 04/18/17 11:45 05/06/17 11:23 Depakote - PO Not Given BID MATILDE Eucalyptus/Menthol/Phenol/Sorbitol 1 each 04/15/17 13:59 Cepastat Lozenge - MM Q4H PRN SORE THROAT Guaifenesin 10 ml 04/15/17 13:59 Robitussin Dm - PO Q6H PRN COUGH Ibuprofen 400 mg 04/15/17 13:59 04/16/17 09:55 Motrin - PO 400 mg Q6H PRN Administration PAIN Loperamide HCl 4 mg 04/15/17 13:59 Imodium - PO Q6H PRN DIARRHEA Magnesium Hydroxide 30 ml 04/15/17 13:59 Milk Of Magnesia - PO DAILY PRN CONSTIPATION Multivit/Folic Acid/Iron 1 tab 04/16/17 10:00 05/06/17 11:23 Vitamins (Sjr) - PO Not Given DAILY MATILDE Pseudoephedrine/Triprolidine 1 combo 04/15/17 13:59 Actifed - PO TID PRN NASAL CONGESTION Quetiapine Fumarate 100 mg 04/18/17 22:00 05/05/17 21:07 Seroquel - PO 100 mg HS MATILDE Administration Ranitidine HCl 150 mg 04/16/17 10:00 05/06/17 11:23 Zantac - PO Not Given DAILY MATILDE Thiamine HCl 100 mg 04/15/17 22:00 05/05/17 21:07 Vitamin B1 - PO 100 mg HS MATILDE Administration Trimethoprim/Sulfamethoxazole 1 each 04/16/17 10:00 05/06/17 11:23 Bactrim Ds - PO Not Given DAILY MATILDE Current Side Effect: No Lab tests ordered: No Lab tests reviewed: Yes Provider note:: Patient will complete this program tomorrow 05/07/17..She has met her treatment goals and will continue to address her issues on outpatient basis.Patient reports finding Seroquel 100 mg po hs and Depakote 500 mg po bid help to cope with mood instabilllity,sleeping difficulties,depression.Scripts for 30 days provided. Patient identifies areas of difficulties and ways , coping skills to utilze to maintain recovery. Patient is stable for discharge tomorrow 05/07/17. Total face to face time:: 30 Mental Status Exam - Mental Status Exam Alert and Oriented to: Time, Place, Person Cognitive Function: Grossly Intact Patient Appearance: Unkempt Mood: Euthymic Affect: Mood Congruent Patient Behavior: Appropriate Speech Pattern: Clear Voice Loudness: Normal Thought Process: Goal Oriented Thought Disorder: Being Controlled Hallucinations: Denies Suicidal Ideation: Denies Homicidal Ideation: Denies Insight/Judgement: Fair Sleep: Fair Appetite: Good Muscle strength/Tone: Normal Gait/Station: Normal Psychiatric Treatment Plan - Problem List (6) GERD (gastroesophageal reflux disease) Qualifiers: Esophagitis presence: without esophagitis Qualified Code(s): K21.9 - Gastro-esophageal reflux disease without esophagitis
[2017-05-06] MEDS: QUEtiapine FUMARATE 100 MG TABLET (FP) PO SCH (21:16)
[2017-05-06] MEDS: THIAMINE HCL 100 MG TABLET (FP) PO SCH (21:16)
[2017-05-07 07:14] VITALS: BP 122/83; PULSE 86; TEMP 98.1
[2017-05-07] MEDS ORDERED: PT OWN MED DRAWER 7, Y5N ONE (08:18)
[2017-05-07] MEDS: RANITIDINE HCL 150 MG TABLET (FP) PO SCH (09:57)
[2017-05-07] MEDS: PRENATAL VITAMINS W/ FOLIC ACID TABLET (FP) PO SCH (09:57)
[2017-05-07] MEDS: DIVALPROEX SODIUM 500 MG TABLET E.C. PO SCH (09:57)
[2017-05-07] MEDS: SULFAMETHOXAZOLE/TRIMETHOPRIM 800MG/160MG D.S. TABLET PO SCH (09:57)
[2017-05-07] MEDS: BUDESONIDE/FORMETEROL FUMARATE 80/4.5 mcg INHALER IH SCH (09:58)
== END 2017-05-07 10:30 | disposition home or self-care (01) | DRG 772 ==
LOC: YASAS 12:01 → Y3E 12:02
PROVIDERS: ADMIT Psychiatry & Neurology Psychiatry; ATTEND Psychiatry & Neurology Psychiatry
PROC: HZ42ZZZ Group Counseling for Substance Abuse Treatment, Cognitive-Behavioral (ICD-10-PCS; principal; 2017-04-15)
DX: F11.20 Opioid dependence, uncomplicated (principal); F10.20 Alcohol dependence, uncomplicated; F14.20 Cocaine dependence, uncomplicated; F12.20 Cannabis dependence, uncomplicated; F20.0 Paranoid schizophrenia; R41.83 Borderline intellectual functioning; I10 Essential (primary) hypertension; K21.9 Gastro-esophageal reflux disease without esophagitis; Z21 Asymptomatic human immunodeficiency virus [HIV] infection status
CPT/HCPCS: 36415; 80164